=== PATIENT | female | born 2000 | race Caucasian/White ===

== ENCOUNTER 2023-12-10 10:52 | Inpatient (IN) | payer OTHER, SELFPAY ==
[2023-12-10] VITALS (50 sets, daily range): BP systolic 98–145; BP diastolic 51–82; PULSE 81–117; RESP 16; TEMP 36.2–36.8; O2SAT 91–100; BMI 29.3
[2023-12-10 10:28] LABS: ROM Internal Control Test YES-OK TO RESULT pt. (Internal QC)
[2023-12-10 10:30] LABS: ROM Patient Test POSITIVE (Negative); Record Kit Lot#, ROM+ K1866
[2023-12-10 11:55] LABS: Absolute Lymphocyte Count 1.11 X10^3/uL (0.83-4.51); Absolute Neutrophil Count 4.3 X10^3/uL (2.0-7.7); Basophil# 0.02 X10^3/uL; Basophil% 0.3 % (0-1); Eosinophils% 1.6 % (0-5); Hematocrit 38.6 % (37-47); Hemoglobin 12.2 g/dL (12.0-15.0); Lymphocyte # 1.11 X10^3/ul (0.83-4.51); Lymphocyte % 17.7 % (19-41); Mean Corp Hgb Conc 31.6 g/dL (32-36); Mean Corpuscular Hgb 28.6 pg (27.0-32.0); Mean Corpuscular Volume 90.6 fL (81-99); Mean Platelet Vol. 11.4 fl (6.2-12.0); Monocyte# 0.76 X10^3/uL; Monocyte% 12.1 % (0-10); NRBC Flagged by Analyzer 0 % (0-5); Neutrophil # 4.25 X10^3/uL (2.7-7.7); Neutrophil % 67.8 % (47-70); Platelet Count 227 K/mm3 (150-450); RBC Distribution Width SD 49.7 fl (35.1-43.9); Red Blood Count 4.26 M/mm3 (4.2-5.4); White Blood Count 6.3 K/mm3 (4.4-11.0)
[2023-12-10 12:49] LABS: Syphilis Antibodies Non-reactive
--- NOTE | 2023-12-10 18:47 | HP.PCM.OB_ITS ---
HPI - General General Date of Admission: 12/10/23 HPI Narrative RAYMUNDO YEE, is a 23 F at 40.5 weeks gestation who presents for spontaneous rupture of membranes around 0300. She was seen in office and Nitrazine and Pooling were positive. Occasional contractions. Positive mo vement. has been uncomplicated. Maternal Data Information MICHAEL Calculator Estimated Delivery Date Method Current WG Current Estimate 12/05/23 Manual 40w 5d PFSH PFSH Medical History no medical history Home Medications ?Medication ?Instructions ?Recorded ?Last Taken ?Type ferrous sulfate 325 mg (65 mg 325 mg PO DAILY anemia 12/10/23 12/09/23 History iron) tablet (iron) vit no.95-ferrous 1 tab PO DAILY 12/10/23 12/09/23 History fumarate 28 mg-folic acid 800 mcg tablet () Allergy/AdvReac Type Severity Reaction Status Date / Time No Known Allergies Allergy Verified 12/10/23 10:55 Surgical History no surgical history Social History Smoking Status: Never smoker History Elective abortions Hx Para 1 Spontaneous abortions Hx # Term Pregnancies Ectopic pregnancies Hx # Pregnancies Multiple births # of living children NST FHR Rate Baby A Baseline: 140 Variability:: Moderate Accelerations:: 15 x 15 Decelerations:: None NST Reactive:: Yes FHR Category:: Category I Uterine Activity:: Irregular ROS Eyes Eyes: Denies blurry vision, change in vision or spots in vision ENT HEENT: Denies dizziness or headache(s) Cardiovascular Cardiovascular: Denies abdominal pain, chest pain or dyspnea Respiratory/Chest Respiratory/Chest: Denies cough, dyspnea, shortness of breath at rest or shortness of breath with exertion Gastrointestinal Gastrointestinal: Denies abdominal pain, diarrhea or vomiting Genitourinary Genitourinary: Denies change in urinary stream, difficulty urinating or dysuria Musculoskeletal Musculoskeletal: Reports none Integumentary Integumentary: Denies rash Neurologic Neurologic: Denies dizziness, headache(s), memory loss or weakness Psychiatric Psychiatric: Reports none Vital Signs Vital Signs Vital Signs: 12/10/23 11:08 12/10/23 11:08 12/10/23 11:08 Temperature Temperature Source Temporal Pulse Rate 96 Respiratory Rate Blood Pressure 124/75 H BP Systolic 124 BP Diastolic 75 Pulse Ox 12/10/23 11:08 12/10/23 11:08 12/10/23 11:08 Temperature 97.2 F L Temperature Source Pulse Rate Respiratory Rate 16 Blood Pressure BP Systolic BP Diastolic Pulse Ox 98 12/10/23 13:31 12/10/23 13:31 12/10/23 13:31 Temperature Temperature Source Temporal Pulse Rate 100 Respiratory Rate Blood Pressure 122/77 H BP Systolic 122 BP Diastolic 77 Pulse Ox 12/10/23 13:31 12/10/23 13:31 12/10/23 13:31 Temperature 98.2 F Temperature Source Pulse Rate Respiratory Rate 16 Blood Pressure BP Systolic BP Diastolic Pulse Ox 98 12/10/23 16:42 12/10/23 16:42 12/10/23 16:42 Temperature Temperature Source Pulse Rate 101 H Respiratory Rate Blood Pressure 114/67 BP Systolic 114 BP Diastolic 67 Pulse Ox 96 12/10/23 16:42 12/10/23 16:42 12/10/23 16:42 Temperature Temperature Source Temporal Pulse Rate Respiratory Rate 16 Blood Pressure BP Systolic BP Diastolic Pulse Ox 98 12/10/23 16:42 Temperature 97.9 F Temperature Source Pulse Rate Respiratory Rate Blood Pressure BP Systolic BP Diastolic Pulse Ox Weight Weight: 165 lb 12.602 oz Body Mass Index (BMI) 29.3 Physical Exam Const alert, oriented x3 and no apparent distress General Appearance: cooperative Orientation / Consciousness: awake Exam Limitations: no limitations HEENT normocephalic Head and Scalp: normal to inspection Eyes General Eye: normal appearance of both eyes Neck full ROM and no lymphadenopathy Lymph Lymphatic: no lymphadenopathy noted Chest inspection of chest normal Resp normal respiratory effort, normal air movement and clear to auscultation bilaterally Effort and Inspection: able to speak in complete sentences and symmetric chest movement Cardio regular rate and regular rhythm GI normal to inspection, nondistended, normoactive bowel sounds Manual OB Exam: presentation cephalic Amniotic Fluid: clear amniotic fluid Back/Spine normal ROM Extremity full ROM and no calf tenderness Skin no rashes or lesions noted General Skin Exam: no breakdown Neuro oriented x3 and CN's II-XII intact bilaterally Psych mental status grossly normal and thought process normal Labs Labs Labs: Blood Type A POSITIVE Antibody Screen NEGATIVE Hct 38.6 % (37-47) Hgb 12.2 g/dL (12.0-15.0) Syphilis Total Ab Non-reactive GBS negative Assessment & Plan (1) 40 weeks gestation of : (2) Spontaneous rupture of amniotic membranes: (3) Supervision of low-risk : PLAN: Plan ROM plus- positive Admit to labor and delivery Routine labs IA Ambulation Desires minimal interventions Dr. Masters notified of admission and plan of care
--- NOTE | 2023-12-10 18:54 | PCM.PN.CNM ---
Subjective Subjective Patient seen at bedside. Ambulating hallways all day. Feeling irregular but increased strength of contractions. Would like to get into tub. Objective Data Objective Data Vital Signs: Vital Signs Temp Pulse Resp BP Pulse Ox 97.9 F 103 H 16 116/79 98 12/10/23 16:42 12/10/23 18:51 12/10/23 16:42 12/10/23 18:51 12/10/23 16:42 Weight: 165 lb 12.602 oz Body Mass Index (BMI) 29.3 Lab / Micro Data 12/10/23 11:30 Labs: Laboratory Results - last 24 hr 12/10/23 10:10: Vag Amniotic Fld Detect POSITIVE H 12/10/23 11:30: WBC 6.3, RBC 4.26, Hgb 12.2, Hct 38.6, MCV 90.6, MCH 28.6, MCHC 31.6 L, RDW Std Deviation 49.7 H, RDW Coeff of Acssie 15.0 H, Plt Count 227, MPV 11.4, Immature Gran % (Auto) 0.500, Neut % (Auto) 67.8, Lymph % (Auto) 17.7 L, [place] % (Auto) 12.1 H, Eos % (Auto) 1.6, Baso % (Auto) 0.3, Absolute Neuts (auto) 4.3, Absolute Lymphs (auto) 1.11, Nucleated RBC % 0, Syphilis Total Ab Non-reactive, Blood Type A POSITIVE, Antibody Screen NEGATIVE Assessment & Plan (1) Supervision of low-risk : (2) Spontaneous rupture of amniotic membranes: (3) 40 weeks gestation of : PLAN: Plan Continues to leak clear fluid Cat. 1 tracing , NST reactive CE /-2 Would like to try warm water immersion and recheck cervix in 2 hours- open to discussing start of Pitocin Pain medication when indicated
[2023-12-10] MEDS: Lactated Ringers 1,000 ML 200 ML IV (19:40)
[2023-12-10] MEDS: Lactated Ringers 1,000 ML 999 ML IV (19:45)
[2023-12-10] MEDS: fentaNYL-bupivacaine (epidural) 100 ML BAG EPIDURAL (22:27)
[2023-12-10] MEDS: Oxytocin 15 Units/NS 250ml 15 UNITS/250 ML IV.SOLN 2 UNITS IV (22:43)
[2023-12-11] VITALS (22 sets, daily range): BP systolic 99–134; BP diastolic 52–86; PULSE 82–112; RESP 16–18; TEMP 36.4–36.8; O2SAT 96–99
[2023-12-11] MEDS: Oxytocin 15 Units/NS 250ml 15 UNITS/250 ML IV.SOLN 334 UNITS IV (01:25)
--- NOTE | 2023-12-11 01:48 | EX.PCM.OBRPT ---
Assessment & Plan (1) (spontaneous vaginal delivery): (2) Perineal laceration, second degree, delivered: (3) Care and examination of lactating mother: Maternal Data Information MICHAEL Calculator Estimated Delivery Date Method Current WG Current Estimate 12/05/23 Manual 40w 6d Gestational age: 40.6 [place] Doctor Who Attended Delivery: RadhaNathan Vaginal Delivery Maternal Presentation Maternal Presentation: Spontaneous Rupture of Membranes Operative Information Date of Procedure: 12/11/23 Pre-Operative Diagnosis: Term gestation, Spontaneous rupture of membranes Post-Operative Diagnosis: Same, , live female infant Surgery / Procedure Performed: Spontaneous Vaginal Delivery Type of Anesthesia: Epidural Estimated Blood Loss: 250 Time of Delivery: 01:20 Findings Description of Procedure: Provided bedside support to patient during pushing. With good maternal effort, infant head delivered followed by anterior shoulder and remainder of infant body without traction. FOB assisted with delivery of body. Vigorous female placed on maternal abdomen and attended to by nursing staff. Pitocin IV started for active management of the third stage of labor. 3 vessel cord clamped and cut by FOB and placed immediately skin to skin with patient. Placenta delivered spontaneously and intact. Second degree laceration repaired in usual fashion using 3-0 vicryl rapid. Hemostasis obtained. Fundus firm 2 below U. EBL 250cc. APGARS 8/9. Dr. Masters notified of delivery. Presentation: Vertex Amniotic Membrane Rupture Type: Spontaneous Time of Membrane Rupture: 12/10/23 0330 Amniotic Fluid Description: Clear and Moderate meconium (meconium fluid towards delivery) Placental Delivery Description: Spontaneous Placenta Disposition: [facility] Cord Vessel Description: 3 Vessels Cord Entanglement: None A Gender: Female (1 minute): 8 (5 minute): 9 Delayed Cord Clamping: Yes Post Vaginal Delivery Medications Given After Delivery: IV Pitocin Episiotomy Description: None Laceration: 2nd degree Complication Complications: None
[2023-12-11] MEDS: Oxytocin 15 Units/NS 250ml 15 UNITS/250 ML IV.SOLN 83 UNITS IV (02:20)
[2023-12-11] MEDS: Naproxen 500 MG Tablet PO (03:52)
[2023-12-11] MEDS: Benzocaine/Lanolin/Aloe Vera 1 SPRAY EACH TOPICAL (07:58)
[2023-12-11] MEDS: Senna/Docusate Sodium 1 Tablet PO (20:11)
[2023-12-11] MEDS: Acetaminophen 500 MG Tablet 1000 MG PO (20:12)
[2023-12-12 01:20] VITALS: BP 118/65; PULSE 85; RESP 16; TEMP 36.4; O2SAT 97
[2023-12-12 01:30] VITALS: BP 118/65; PULSE 79; O2SAT 98
[2023-12-12 08:09] VITALS: BP 135/65; PULSE 96
[2023-12-12 08:18] VITALS: BP 135/65; PULSE 96; RESP 16; TEMP 36.4
--- NOTE | 2023-12-12 08:38 | PCM.DC.SUM ---
Providers Date of Admission: 12/10/23 Primary Care Physician: [facility] Primary Care Phys Reason For Visit: VAGINAL DELIVERY Diagnosis Discharge Diagnosis (1) (spontaneous vaginal delivery): Status: Acute Code(s): O80 - Encounter for full-term uncomplicated delivery (2) Perineal laceration, second degree, delivered: Status: Acute Code(s): O70.1 - Second degree perineal laceration during delivery (3) Care and examination of lactating mother: Status: Acute Code(s): Z39.1 - Encounter for care and examination of lactating mother Medications at Discharge Home Medications ferrous sulfate 325 mg (65 mg iron) tablet (iron) 325 mg PO DAILY anemia 12/10/23 vit no.95-ferrous fumarate 28 mg-folic acid 800 mcg tablet () 1 tab PO DAILY 12/10/23 acetaminophen 500 mg tablet 1,000 mg (2 x 500 mg) PO Q6H PRN PRN Pain 1-10 Or Fever #0 tabs 12/12/23 naproxen 500 mg tablet 500 mg PO Q8H PRN PRN Pain Score 1-10 #0 tabs 12/12/23 Hospital Course Operations None Procedures None Summary of Care Provided Minutes Spent on Discharge: 15 Hospital Course: Patient had . Hospital course was uneventful. Physical Exam Narrative Patient seen at bedside. Up and ambulating in room. Denies pain. Lochia decreasing. Desires discharge home today. Const alert and no apparent distress General Appearance: cooperative and comfortable Exam Limitations: no limitations HEENT normocephalic Eyes General Eye: normal appearance of both eyes Neck full ROM General: normal visual inspection Chest Chest: symmetrical chest wall rise Resp normal respiratory effort and normal air movement Effort and Inspection: symmetric chest movement Auscultation: clear to auscultation bilaterally Cardio regular rate and regular rhythm GI normal to inspection, nondistended, normoactive bowel sounds Back/Spine normal ROM Extremity full ROM and no calf tenderness General Extremity: normal exam except as noted Skin no rashes or lesions noted Neuro CN's II-XII intact bilaterally Psych mental status grossly normal Weight / BMI Weight Weight: 165 lb 12.602 oz Body Mass Index (BMI) 29.3 ABG / Lab / Microbiology Data 12/10/23 11:30 D/C Instructions Discharge Diet: No restrictions May resume sexual activity in: 6-8 weeks Weight Bearing Status: Weight bearing as tolerated Call your doctor if you observe: Fever of 101 or Higher, Inability to urinate, Using more than 1 pad per hour, Shortness of breath, Chest pain, Calf discomfort and Uncontrolled pain Please Follow Up With: Shantell Dickson CNM When: 2 weeks virtual visit/ 6 weeks in office Meaningful Use Info Meaningful Use Meaningful Use Diagnoses (Choose all that apply): None applicable Ischemic Stroke Statin Dosing Therapy Reference: STATIN DOSE THERAPY REFERENCE: * Patients > 75 years receive moderate or high dose statin therapy. * Patients 75 years or YOUNGER should receive HIGH intensity statin dose unless contraindicated. You will be required to document reason for non-treatment if statin daily dose does not meet guidelines. HIGH DOSE STATIN THERAPY DAILY Atorvastatin > than or = to 40 mg Rosuvastatin > than or = to 20 mg Amlodipine + Atorvastatin > than or = to 2.5/40 mg Ezetimibe + Simvastatin 10/80 mg Simvastatin 80mg Discharge Plan Admission Admit Date/Time: 12/10/23 10:52 Primary Reason for Your Visit: Labor and Delivery Attending Provider: Shantell Dickson Primary Care Provider: Care Physician,No Primary Discharge Orders/Prescriptions Prescriptions: New acetaminophen 500 mg Tablet 1,000 mg PO Q6H PRN PRN (Reason: Pain 1-10 Or Fever) Qty: 0 0RF naproxen 500 mg Tablet 500 mg PO Q8H PRN PRN (Reason: Pain Score 1-10) Qty: 0 0RF Continued PNV cmb#95-ferrous fumarate-FA [] 28 mg iron- 800 mcg tablet 1 tab PO DAILY No Action ferrous sulfate [iron] 325 mg (65 mg iron) tablet 325 mg PO DAILY Referrals / Follow Up: Shantell Dickson CNM [Med Staff - Adv Practice Prof] - Care Physician,No Primary [Primary Care Provider] - Disposition Disposition (needs filled in before D/C Order can be placed): Home, Self Care
== END 2023-12-12 10:30 | disposition home or self-care (01) | DRG 807 ==
PROVIDERS: Admitting Provider Advanced Practice Midwife; Referring Provider Advanced Practice Midwife; Visit Provider Advanced Practice Midwife
DX: O48.0 Post-term pregnancy (principal); Z37.0 Single live birth; O70.1 Second degree perineal laceration during delivery; Z3A.40 40 weeks gestation of pregnancy; O77.0 Labor and delivery complicated by meconium in amniotic fluid
CPT/HCPCS: 59025; 59050; 84112; 85025; 86780; 86850; 86900; 86901; 99221; J7120; G0378